=== PATIENT | male | born 1990 | race Caucasian/White ===

== ENCOUNTER 2017-01-06 17:25 | Emergency (ER) | payer BC ==
[~2017-01-06] VITALS: Ht 185.4 cm; Wt 142.8 kg
[2017-01-06 17:33] VITALS: BP 181/130; PULSE 124; RESP 24; TEMP 100.8; O2SAT 95
[2017-01-06 17:59] VITALS: BP 198/109; PULSE 120; RESP 20; TEMP 101.3; O2SAT 95
[2017-01-06] MEDS ORDERED: SODIUM CHLOR 0.9% 1000 ML INJ 1,000 ML IV ONE ×3 (18:15→19:45)
[2017-01-06] MEDS ORDERED: SODIUM CHLORIDE 0.9% FLUSH 5 ML FLUSH IVF PRN (18:15)
[2017-01-06 18:30] LABS: AUTOMATED NEUTROPHIL # 6.2 TH/MM3 (1.8-7.7); BASOPHIL # 0.2 TH/MM3 (0-0.2); BASOPHIL % 2.9 % (0.0-2.0); EOSINOPHIL % 0.2 % (0.0-4.0); HEMATOCRIT 46.7 % (39.0-51.0); HEMO FLAGS DIFF FINAL; LYMPH % 9.3 % (9.0-44.0); LYMPHOCYTE # 0.7 TH/MM3 (1.0-4.8); MEAN CELL VOLUME 89.9 FL (80.0-100.0); MEAN CORPUSCULAR HGB CONC 33.3 % (32.0-36.0); NEUT % 76.6 % (16.0-70.0); PLATELET COUNT 207 TH/MM3 (150-450)
[2017-01-06 18:48] VITALS: O2SAT 98
[2017-01-06 18:52] LABS: CHLORIDE 105 MEQ/L (98-107); SODIUM (NA) 139 MEQ/L (136-145)
[2017-01-06 18:55] LABS: ANION GAP 10 MEQ/L (5-15); BICARBONATE 23.8 MEQ/L (21.0-32.0); BLOOD UREA NITROGEN 11 MG/DL (7-18)
[2017-01-06 18:56] LABS: APTT (PATIENT) 29.7 SEC (24.3-30.1); PROTHROMBIN TIME - PATIENT 11.3 SEC (9.8-11.6)
[2017-01-06 18:58] LABS: ALT (GPT) 98 U/L (12-78); AST (GOT) 57 U/L (15-37); GLOMERULAR FILTRATION RATE 72 ML/MIN (>89)
[2017-01-06 19:00] LABS: TOTAL BILIRUBIN ADULT 0.5 MG/DL (0.2-1.0)
[2017-01-06 19:01] LABS: ALKALINE PHOSPHATASE 72 U/L (45-117)
[2017-01-06 19:14] LABS: POTASSIUM 4.2 MEQ/L (3.5-5.1)
[2017-01-06] MEDS ORDERED: ACETAMINOPHEN 325 MG TAB PO ONE (19:15)
--- NOTE | 2017-01-06 19:17 | RADHPO ---
EXAM DATE/TIME: 01/06/2017 18:55 [place] COMPARISON: No previous studies available for comparison. INDICATIONS : Cough and flu symptoms for 2 days. MEDICAL HISTORY : Hypertension. SURGICAL HISTORY : None. ENCOUNTER: Initial ACUITY: 2 days PAIN SCORE: 4/10 LOCATION: Bilateral chest FINDINGS: No focal infiltrate demonstrated. No pleural effusion or pneumothorax. Heart size within normal limit s. CONCLUSION: No acute cardiopulmonary disease demonstrated. Satish Barbosa MD on January 06, 2017 at 19:14 Board Certified Radiologist. This report was verified electronically.
[2017-01-06 19:34] VITALS: BP_SYST 221; BP_DIAS 119; BP_DIAS 125; PULSE 118; RESP 20; TEMP 101; O2SAT 97
[2017-01-06] MEDS ORDERED: ACETAMINOPHEN/HYDROcodone 325 MG/5 MG TAB PO ONE (20:00)
[2017-01-06] MEDS ORDERED: KETOROLAC TROMETHAMINE 30 MG/ML (IVP) VIAL IV PUSH ONE (20:00)
[2017-01-06 20:30] VITALS: BP 189/106; PULSE 100; RESP 20; TEMP 100.7
[2017-01-06] MEDS ORDERED: ZOFR4TAB3 SL (20:45)
--- NOTE | 2017-01-06 20:46 | PD ---
HPI Chief Complaint: Cold / Flu Symptoms Time Seen by Provider: 18:53 Travel History International Travel<30 days: No Contact w/Intl Traveler<30days: No Traveled to known affect area: No History of Present Illness HPI Patient's 18-year-old male presents emergency department for complaints of generalized body aches or pain in bilateral legs acute on chronic low back pain and intermittent fever. Patient also endorses upper respirations symptoms including cough and congestion runny nose. Patient states symptoms been going on for the past few days. Denies nausea or vomiting. Patient take Tylenol at home with some relief. PFSH Past Medical History Medical History: Denies Significant Hx Cardiovascular Problems: Yes (htn) Diminished Hearing: No Influenza Vaccination: No Past Surgical History Neurologic Surgery: Yes (RUPTURED DISC) Social History Alcohol Use: No Tobacco Use: Yes Allergies-Medications (Allergen,Severity, Reaction): Coded Allergies: No Known Allergies (Unverified , 01/06/17) Reported Meds & Prescriptions Reported Meds & Active Scripts Active Zofran Odt (Ondansetron Odt) 4 Mg Tab 4 Mg SL Q6HR PRN Review of Systems Except as stated in HPI: all other systems reviewed are Neg Physical Exam Narrative GENERAL: Well-developed well-nourished no apparent distress. SKIN: Warm and dry. HEAD: Atraumatic. Normocephalic. EYES: Pupils equal and round. No scleral icterus. No injection or drainage. ENT: No nasal bleeding or discharge. Mucous membranes pink and moist. TMs clear bilaterally, oropharynx clear. NECK: Trachea midline. No JVD. CARDIOVASCULAR: Regular rate and rhythm. No murmur appreciated. RESPIRATORY: No accessory muscle use. Clear to auscultation. Breath sounds equal bilaterally. GASTROINTESTINAL: Abdomen soft, non-tender, nondistended. Hepatic and splenic margins not palpable. MUSCULOSKELETAL: No obvious deformities. No clubbing. No cyanosis. No edema. NEUROLOGICAL: Awake and alert. No obvious cranial nerve deficits. Motor grossly within normal limits. Normal speech. PSYCHIATRIC: Appropriate mood and affect; insight and judgment normal. Data Data Last Documented VS Vital Signs Date Time Temp Pulse Resp B/P Pulse Ox O2 Delivery O2 Flow Rate FiO2 01/06/17 20:59 110 18 186/100 98 Room Air 01/06/17 20:30 100.7 Orders Complete Blood Count With Diff (01/06/17 18:11) Comprehensive Metabolic Panel (01/06/17 18:11) Magnesium (Mg) (01/06/17 18:11) Prothrombin Time / Inr (Pt) (01/06/17 18:11) Act Partial Throm Time (Ptt) (01/06/17 18:11) Troponin I (01/06/17 18:11) Ecg Monitoring (01/06/17 18:11) Bilateral Bp Monitoring (01/06/17 18:11) Iv Access Insert/Monitor (01/06/17 18:11) Oximetry (01/06/17 18:11) Oxygen Administration (01/06/17 18:11) Sodium Chloride 0.9% Flush (Ns Flush) (01/06/17 18:15) Chest, Pa & Lat (01/06/17 18:11) Sodium Chlor 0.9% 1000 Ml Inj (Ns 1000 M (01/06/17 18:15) Influenzae A/B Antigen (01/06/17 18:11) Group A Rapid Strep Screen (01/06/17 18:13) Strep Culture (Group A) (01/06/17 18:26) Acetaminophen (Tylenol) (01/06/17 19:15) Sodium Chlor 0.9% 1000 Ml Inj (Ns 1000 M (01/06/17 19:45) Sodium Chlor 0.9% 1000 Ml Inj (Ns 1000 M (01/06/17 19:45) Acetamin-Hydrocod 325-5 Mg ([place] 5-325 (01/06/17 20:00) Ketorolac Inj (Toradol Inj) (01/06/17 20:00) Labs Laboratory Tests Test 01/06/17 18:26 White Blood Count 8.0 TH/MM3 Red Blood Count 5.20 MIL/MM3 Hemoglobin 15.6 GM/DL Hematocrit 46.7 % Mean Corpuscular Volume 89.9 FL Mean Corpuscular Hemoglobin 30.0 PG Mean Corpuscular Hemoglobin 33.3 % Concent Red Cell Distribution Width 13.0 % Platelet Count 207 TH/MM3 Mean Platelet Volume 9.4 FL Neutrophils (%) (Auto) 76.6 % Lymphocytes (%) (Auto) 9.3 % Monocytes (%) (Auto) 11.0 % Eosinophils (%) (Auto) 0.2 % Basophils (%) (Auto) 2.9 % Neutrophils # (Auto) 6.2 TH/MM3 Lymphocytes # (Auto) 0.7 TH/MM3 Monocytes # (Auto) 0.9 TH/MM3 Eosinophils # (Auto) 0.0 TH/MM3 Basophils # (Auto) 0.2 TH/MM3 CBC Comment DIFF FINAL Differential Comment Prothrombin Time 11.3 SEC Prothromb Time International 1.0 RATIO Ratio Activated Partial 29.7 SEC Thromboplast Time Sodium Level 139 MEQ/L Potassium Level 4.2 MEQ/L Chloride Level 105 MEQ/L Carbon Dioxide Level 23.8 MEQ/L Anion Gap 10 MEQ/L Blood Urea Nitrogen 11 MG/DL Creatinine 1.20 MG/DL Estimat Glomerular Filtration 72 ML/MIN Rate Random Glucose 106 MG/DL Calcium Level 8.5 MG/DL Magnesium Level 2.0 MG/DL Total Bilirubin 0.5 MG/DL Aspartate Amino Transf 57 U/L (AST/SGOT) Alanine Aminotransferase 98 U/L (ALT/SGPT) Alkaline Phosphatase 72 U/L Troponin I LESS THAN 0.02 NG/ML Total Protein 8.0 GM/DL Albumin 4.0 GM/DL MDM Medical Decision Making Medical Screen Exam Complete: Yes Emergency Medical Condition: Yes Differential Diagnosis Influenza, strep, pneumonia, flulike symptoms, body aches. Dehydration electro- light abnormality. Narrative Course Patient was roomed emergency department, appears well in no apparent distress. Toradol and Tylenol were given in emergency department. As well as IV fluids. Patient began to feel better. Rapid flu rapid strep negative. CBC and BMP are reassuring. Overall impression is a 26-year-old male who is suffering from viral illness. There are no red flags for more severe illness such as meningitis or pneumonia. Chest x-ray is negative in the emergency department. He is stable for discharge. Discussed with the patient his elevated blood pressure as well as transaminitis and recommended close follow-up with a primary care physician. Diagnosis Primary Impression: Flu-like symptoms Additional Impression: Elevated BP without diagnosis of hypertension Additional Instructions: Drink lots of water and keep herself hydrated. Take Tylenol 500 mg by mouth every 8 hours as needed for temperature greater than 100.4. Take ibuprofen 600 mg by mouth every 6 hours as needed for temperature greater than 100.4 or back pain. Follow-up with your primary care physician after your symptoms are better to follow-up your blood pressure. Med/Other Pt SpecificInfo: Prescription(s) given Scripts Ondansetron Odt (Zofran Odt)4 Mg Tab4 Mg SL Q6HR PRN (Nausea/Vomiting) #30 TAB Ref 0 Prov:Riky Strong MD 01/06/17 Disposition: 01 DISCHARGE HOME Condition: Stable Riky Strong MD Jan 06, 2017 20:46
[2017-01-06 20:59] VITALS: BP 186/100; PULSE 110; RESP 18; O2SAT 98
== END 2017-01-06 20:55 | disposition home or self-care (01) ==
LOC: PHED 17:25
DX: B34.9 Viral infection, unspecified (principal); R74.0 Nonspecific elevation of levels of transaminase and lactic acid dehydrogenase [LDH]; R03.0 Elevated blood-pressure reading, without diagnosis of hypertension; M79.1 Myalgia; M79.605 Pain in left leg; M79.604 Pain in right leg; M54.5 Low back pain; R50.9 Fever, unspecified; R05 Cough; R09.89 Other specified symptoms and signs involving the circulatory and respiratory systems; Z72.0 Tobacco use; Z86.79 Personal history of other diseases of the circulatory system
CPT/HCPCS: 71020; 80053; 83735; 84484; 85025; 85610; 85730; 87081; 87804; 87880; 96361; 96374; 99283; J1885; J7030